=== PATIENT | male | born 1950 | race Caucasian/White ===

== ENCOUNTER → 2020-05-08 08:03 | Outpatient (BNVA) | payer BC, SELFPAY | PROVIDERS: Visit Provider Internal Medicine | DX: I50.9 Heart failure, unspecified (principal); I11.0 Hypertensive heart disease with heart failure; Z95.1 Presence of aortocoronary bypass graft; Z98.890 Other specified postprocedural states | CPT/HCPCS: 93005 ==

== ENCOUNTER 2021-01-31 10:30 | Inpatient (IN) | payer MEDICARE, OTHER, SELFPAY ==
--- NOTE | ~2021-01-31 | XR_ITS ---
EXAMINATION: XR CHEST CLINICAL INFORMATION: Shortness of breath, weakness COMPARISON: None TECHNIQUE: Portable upright AP view of the chest was obtained. FINDINGS: There are postsurgical changes with prosthetic cardiac valve, mediastinal clips, and sternotomy wires. The cardiopericardial silhouette is borderline enlarged. Smooth pleural thickening left lateral base may be related to postoperative change. Small effusion may have similar appearance. There is no lobar segmental airspace consolidation. Subtle patchy opacity right infrahilar region is present. There is no engorgement central vasculature or cephalization of flow to suggest vascular congestion.. XR/XR chest 1V IMPRESSION: 1. Patchy airspace opacities right infrahilar region. 2. Postoperative changes.
--- NOTE | ~2021-01-31 | XR_ITS ---
EXAMINATION: XR CHEST CLINICAL INFORMATION: Evaluate for pneumonia. COMPARISON: Portable chest dated 12/01/2020. TECHNIQUE: Frontal view of the chest was obtained. FINDINGS: There is a small left pleural effusion with probable layering in the major fissure. A definitive infiltrate is not seen. Previously seen right infrahilar markings have decreased. The heart and mediastinal structures are unremarkable. The patient status post valvular arthroplasty. Multilevel sternotomy wires are again seen without significant change. XR/XR chest 1V IMPRESSION: 1. Small left pleural effusion with probable layering in the major fissure appears minimally increased. No definitive infiltrate. 2. Interval decrease in right infrahilar markings suggesting improved atelectasis.
[2021-01-31 10:42] VITALS: BP 113/61; PULSE 80; RESP 22; TEMP 36.8; O2SAT 92; BMI 44.1
--- NOTE | 2021-01-31 11:20 | ED.GENADULT ---
HPI - General Adult General Chief complaint: Dyspnea Stated complaint: new onset a fib Time Seen by Provider: 01/31/21 11:19 Source: patient Mode of arrival: EMS Limitations: no limitations History of Present Illness HPI narrative: 70 yo male past medical history significant for CHF, hypertension,coronary artery bypass graft, mitral valve annuloplasty, presents to the emergency department with shortness of breath, weakness x3 days. He states that over the past 3 days he has been feeling increased shortness of breath, even when he is at rest. He also mentions he has been feeling weak, and with little energy. He has noticed increased swelling to bilateral lower extremities. And he reports that over the past 4 weeks he has gained approximately 20 lb. He is a daily smoker, and has been smoking for over 50 years. He has a chronic cough but over the last 4 weeks he has been bringing up more phlegm in the last few dyas. He denies previous history of atrial fibrillation. Denies chest pain, fevers, chills, nausea, vomiting, abdominal pain. EMS found the patient with SpO2 low 90s and he was placed on nasal cannula and brought to the ER for further evaluation. complaint: SOB Onset (ago): day(s) Location: chest Radiation: non-radiation Severity: moderate Pain Consistency: constant Relieving factors: rest Exacerbating factors: movement Associated symptoms: malaise, shortness of breath and weakness Treatments prior to arrival: other (oxygen) Related Data Home Medications Medication Instructions Recorded Confirmed amlodipine 10 mg tablet 10 mg PO DAILY 05/08/20 01/31/21 aspirin 81 mg tablet,delayed 81 mg PO DAILY 05/08/20 01/31/21 release (Adult Low Dose Aspirin) carvedilol 25 mg tablet 25 mg PO BID 05/08/20 01/31/21 furosemide 40 mg tablet 40 mg PO DAILY 05/08/20 01/31/21 lisinopril 20 mg tablet 20 mg PO DAILY 05/08/20 01/31/21 potassium chloride 10 mEq 10 meq PO BID 05/08/20 01/31/21 capsule,extended release pravastatin 80 mg tablet 80 mg PO DAILY 05/08/20 01/31/21 Allergies Allergy/AdvReac Type Severity Reaction Status Date / Time No Known Allergies Allergy Verified 01/31/21 10:42 [No Known Allergies*] Review of Systems Review of Systems: Constitutional: No Fever, No Chills ENT/Mouth: No sore throat, No Rhinorrhea, No Swallowing Difficulty Eyes: No Eye Pain, No Swelling, No Redness Cardiovascular: No Chest Pain, + SOB, No Orthopnea, No Edema, +Palpitaitons Respiratory: + Cough, + Sputum, No Wheezing, + dyspnea Gastrointestinal: No Nausea, No Vomiting, No Diarrhea, No abdominal Pain, No Hematochezia, No Melena Genitourinary: No Dysuria, No Urinary Frequency, No Hematuria Musculoskeletal: No joint pain, No Myalgias Skin: No Skin Lesions, No rash Neuro: No Weakness, No Numbness, No Dizziness, No Headache PMFSH Past Medical History Medical History (Updated 01/31/21 @ 15:11 by FRANSISCA Segura) Congestive heart failure, unspecified Essential hypertension Surgical History (Updated 05/08/20 @ 09:08 by Marvin Molina MD) H/O mitral valve repair Status post coronary artery bypass graft Status post mitral valve annuloplasty Family History Family History (Updated 05/08/20 @ 08:47 by ADAN Pierre) Father No problems noted. Mother No problems noted. Social History Social History (Updated 05/08/20 @ 08:46 by ADAN Pierre) Advance Directives: No Physical Exam Vital Signs: Vital Signs: Last Vital Signs Temp 98.3 F 01/31/21 10:42 Pulse 88 01/31/21 14:37 Resp 18 01/31/21 14:00 BP 147/64 H 01/31/21 14:00 Pulse Ox 92 01/31/21 14:00 Oxygen Flow Rate 2 01/31/21 10:42 Body Mass Index 44.1 Appearance: Alert. Oriented X3. No acute distress. Eyes: Pupils equal, round and reactive to light. ENT: Pharynx normal. Neck: Normal inspection. Neck supple. CVS: Normal heart rate and rhythm. Pulses normal. ?Murmur systolic best at right sternal border Respiratory: No respiratory distress. + wheezing noted over all lung gunter + decreased breath sounds to the left lower lobe. Abdomen: Soft and nontender. +BS x4 Skin: Skin warm and dry. Normal skin color. Normal skin turgor. No rashes. Extremities: 3+ pitting edema to b/l LE Neuro: Oriented X 3. No motor deficit. No sensory deficit. Course Course Course Narrative: 1125 62-year-old m PMHx significant for CHF, HTN, mitral valve repair non ASA presents to the ED with complaints of SOB and weakness for about 2 week progressively worsening. EMS states that he was saturating in the low 90s, so they placed him on 2 L of oxygen. He is currently saturating 92% on 2 L. He is a current daily smoker. Upon further questioning he also notes he has gained about 20 lb within the past month or so. Wheezing appreciated to all lung gunter upon physical examination, there are decreased breath sounds to left lower lobe. 3+ pitting edema is noted to bilateral lower extremities. Concern for acute CHF exacerbation. Will give a dose of IV lasix now. Plan is to obtain an EKG, chest x-ray, BMP, BNP, liver, magnesium, CBC, troponin, UA, COVID. Patient reports no fevers at home, he is currently afebrile, he reports some cough with sputum production, acute on chronic. Will get CXR to assess for PNA vs CHF Reevaluation(s) Reevaluation #1: X-ray shows patchy airspace opacities in the right infrahilar region. Labs show an elevated potassium at 5.4, carbon dioxide 33, BNP only 143, troponin 7.6, he is COVID negative. EKG is new onset rate controlled AFib. TT Dr. Molina and felt him in on this patient's case, he recommended ordering an echo completed on this patient. Reevaluation #2: Patient is saturating 90% on 2 L nasal cannula, he is feeling slightly better. He is diuresing well with IV Lasix. Given his wheeze, longstanding smoking, and productive cough, will plan to treat empirically for possible COPD exacerbation as well, with IV azithromycin, IV Rocephin, IV Solu-Medrol and a DuoNeb. Will reassess. Reevaluation #3: After DuoNeb treatment patient's heart rate remained well controlled in the 80s 90s. He feels no different after breathing treatment. Respiratory did not know any change in his breath sounds. Plan for admission for further evaluation and treatment. Dr. Jarvis aware who will admit. Consultations Consultation #1: Cardiology - Dr. Molina Medical Decision Making Lab Data Result diagrams: 01/31/21 12:11 01/31/21 12:11 Labs: Lab Results 01/31/21 01/31/21 01/31/21 Range/Units 12:11 12:11 12:11 WBC 8.8 (4.8-10.8) X10*3/uL RBC 4.34 L (4.60-5.80) X10*6/uL Hgb 14.2 (14.0-18.0) g/dl Hct 44.7 (42-52) % MCV 103.0 H (80-98) fL MCH 32.7 (27.0-33.0) pg MCHC 31.8 (31.0-36.0) g/dl RDW 14.9 (11.0-16.0) % Plt Count 254 (160-400) X10*3/uL MPV 9.3 L (9.4-12.4) fL Immature Gran % (Auto) 0.3 (0.0-0.4) % Neut % (Auto) 65.1 (45-73) % Lymph % (Auto) 17.4 L (20-40) % [place] % (Auto) 11.7 H (2-11) % Eos % (Auto) 4.4 H (0-4) % Baso % (Auto) 1.1 (0-2) % Lymph # (Auto) 1.5 (1.2-4.9) X10*3/uL [place] # (Auto) 1.0 (0.1-1.2) X10*3/uL Eos # (Auto) 0.4 (0.0-0.4) X10*3/uL Baso # (Auto) 0.1 (0.0-0.2) X10*3/uL Abs Immat Gran (auto) 0.03 (0.00-0.03) X10*3/uL Absolute Neuts (auto) 5.7 (2.0-8.3) X10*3/uL Absolute Nucleated RBC 0.000 (0.0-0.012) X10*3/uL Nucleated RBC % (auto) 0.0 (0.0-0.2) /100WBC Sodium 144 (135-145) mmol/L Potassium 5.4 H (3.3-5.1) mmol/L Chloride 106 (96-108) mmol/L Carbon Dioxide 33 H (22-29) mmol/L Anion Gap 10 L (12-20) BUN 13 (9-16) mg/dL Creatinine 1.25 (0.5-1.4) mg/dL Estim Creat Clear Calc 74.9 Estimated GFR 57 Random Glucose 112 (60-115) mg/dL Calcium 10.0 (8.4-10.2) mg/dL Magnesium 2.1 (1.6-2.6) mg/dL Total Bilirubin 0.9 (0.0-1.0) mg/dL Direct Bilirubin 0.5 (0.0-0.5) mg/dL AST 18 (5-37) U/L ALT 16 (0-40) U/L Alkaline Phosphatase 43 (39-117) U/L Troponin I High Sens 7.6 (<3.5-35.0) ng/L B-Natriuretic Peptide (<100) pg/mL Total Protein 6.9 (6.5-8.0) g/dL Albumin 4.1 (3.5-5.0) g/dL Urine Color Urine Appearance Urine pH (5.0-8.0) Ur Specific [place] (1.005-1.025) Urine Protein (NEG-TRACE) MG/DL Urine Glucose (UA) (NEG) MG/DL Urine Ketones (NEG) MG/DL Urine Blood (NEG) Urine Nitrite (NEG) Ur Leukocyte Esterase (NEG) COVID-19 ([place]) (Negative) COVID-19 Clin Com 01/31/21 01/31/21 01/31/21 Range/Units 12:11 12:11 14:30 WBC (4.8-10.8) X10*3/uL RBC (4.60-5.80) X10*6/uL Hgb (14.0-18.0) g/dl Hct (42-52) % MCV (80-98) fL MCH (27.0-33.0) pg MCHC (31.0-36.0) g/dl RDW (11.0-16.0) % Plt Count (160-400) X10*3/uL MPV (9.4-12.4) fL Immature Gran % (Auto) (0.0-0.4) % Neut % (Auto) (45-73) % Lymph % (Auto) (20-40) % [place] % (Auto) (2-11) % Eos % (Auto) (0-4) % Baso % (Auto) (0-2) % Lymph # (Auto) (1.2-4.9) X10*3/uL [place] # (Auto) (0.1-1.2) X10*3/uL Eos # (Auto) (0.0-0.4) X10*3/uL Baso # (Auto) (0.0-0.2) X10*3/uL Abs Immat Gran (auto) (0.00-0.03) X10*3/uL Absolute Neuts (auto) (2.0-8.3) X10*3/uL Absolute Nucleated RBC (0.0-0.012) X10*3/uL Nucleated RBC % (auto) (0.0-0.2) /100WBC Sodium (135-145) mmol/L Potassium (3.3-5.1) mmol/L Chloride (96-108) mmol/L Carbon Dioxide (22-29) mmol/L Anion Gap (12-20) BUN (9-16) mg/dL Creatinine (0.5-1.4) mg/dL Estim Creat Clear Calc Estimated GFR Random Glucose (60-115) mg/dL Calcium (8.4-10.2) mg/dL Magnesium (1.6-2.6) mg/dL Total Bilirubin (0.0-1.0) mg/dL Direct Bilirubin (0.0-0.5) mg/dL AST (5-37) U/L ALT (0-40) U/L Alkaline Phosphatase (39-117) U/L Troponin I High Sens (<3.5-35.0) ng/L B-Natriuretic Peptide 143 H (<100) pg/mL Total Protein (6.5-8.0) g/dL Albumin (3.5-5.0) g/dL Urine Color STRAW Urine Appearance CLEAR Urine pH 5.5 (5.0-8.0) Ur Specific [place] <= 1.005 (1.005-1.025) Urine Protein NEG (NEG-TRACE) MG/DL Urine Glucose (UA) NEG (NEG) MG/DL Urine Ketones NEG (NEG) MG/DL Urine Blood NEG (NEG) Urine Nitrite NEG (NEG) Ur Leukocyte Esterase NEG (NEG) COVID-19 ([place]) Negative (Negative) COVID-19 Clin Com See Note ECG Data Attestation: I personally reviewed and interpreted this ECG as follows: Interpretation: atrial fibrillation, HR 83 bpm, incomplete RBBB, poor R wave progression, no ST segment elevations or depressions Critical Care Time Critical Care Time Critical Care Time: Yes Total Critical Care Time: 48 Attestation: I have personally provided critical care time exclusive of time spent on separately billable procedures. Time includes review of lab data, radiology results, discussion with consultants, and monitoring for potential decompensation. Intervention performed as documented. Discharge Plan Discharge Clinical Impression: Congestive heart failure, unspecified, Atrial fibrillation, COPD (chronic obstructive pulmonary disease) Patient Disposition: Admitted As Inpatient
--- NOTE | 2021-01-31 11:25 | ECG_ITS ---
Test Reason : / NEW ONSET AFIB Blood Pressure : / mmHG Vent. Rate : 083 BPM Atrial Rate : 000 BPM P-R Int : 000 ms QRS Dur : 108 ms QT Int : 408 ms P-R-T Axes : 000 -13 033 degrees QTc Int : 479 ms Atrial fibrillation Low voltage QRS Incomplete right bundle branch block Nonspecific T wave abnormality Abnormal ECG No previous ECGs available Referred By: Rosie Newberry Electronically Signed By:ARVIND SÁNCHEZ MD
[2021-01-31 12:15] LABS: MANUAL DIFF FLAG NO
[2021-01-31 12:19] LABS: Basophils Absolute Auto 0.1 X10*3/uL (0.0-0.2); Basophils Percent Auto 1.1 % (0-2); Eosinophils Absolute Auto 0.4 X10*3/uL (0.0-0.4); Eosinophils Percent Auto 4.4 % (0-4); Hematocrit 44.7 % (42-52); Hemoglobin 14.2 g/dl (14.0-18.0); Imm Gran Abs Auto 0.03 X10*3/uL (0.00-0.03); Imm Gran Pct Auto 0.3 % (0.0-0.4); Lymphocytes Absolute Auto 1.5 X10*3/uL (1.2-4.9); Lymphocytes Percent Auto 17.4 % (20-40); Mean Corpuscular HGB Conc 31.8 g/dl (31.0-36.0); Mean Corpuscular Hemoglobin 32.7 pg (27.0-33.0); Mean Platelet Volume 9.3 fL (9.4-12.4); Monocytes Percent Auto 11.7 % (2-11); Neutrophils Absolute Auto 5.7 X10*3/uL (2.0-8.3); Neutrophils Percent Auto 65.1 % (45-73); Platelet Count 254 X10*3/uL (160-400); Red Blood Count 4.34 X10*6/uL (4.60-5.80); Red Cell Distribution Width 14.9 % (11.0-16.0); White Blood Count 8.8 X10*3/uL (4.8-10.8)
[2021-01-31 12:33] LABS: Alanine Aminotransferase 16 U/L (0-40); Albumin Level 4.1 g/dL (3.5-5.0); Alkaline Phosphatase 43 U/L (39-117); Anion Gap 10 (12-20); Aspartate Amino Transferase 18 U/L (5-37); Bilirubin Direct 0.5 mg/dL (0.0-0.5); Bilirubin Total 0.9 mg/dL (0.0-1.0); Blood Urea Nitrogen 13 mg/dL (9-16); COVID-19 Test Negative (Negative); Carbon Dioxide 33 mmol/L (22-29); Chloride 106 mmol/L (96-108); Creatinine Clr Calc Pharmacy 74.9; Estimated Glomerular Filt Rate 57; Glucose Random 112 mg/dL (60-115); Magnesium 2.1 mg/dL (1.6-2.6); Potassium 5.4 mmol/L (3.3-5.1); Sodium 144 mmol/L (135-145); Total Protein 6.9 g/dL (6.5-8.0)
[2021-01-31 12:36] LABS: B Type Natriuretic Peptide 143 pg/mL (<100)
[2021-01-31 12:38] LABS: Troponin-I High Sensitivity 7.6 ng/L (<3.5-35.0)
--- NOTE | 2021-01-31 12:41 | PHA.MEDREC ---
Pharmacy Consult ? Medication Reconciliation Pharmacy has completed the medication reconciliation. There are no remarkable issues for provider's attention. Daria Peña, HarleyD
[2021-01-31] MEDS: Furosemide 40 MG/4 ML VIAL IVPUSH ×2 (13:00→18:27)
[2021-01-31 14:00] VITALS: BP 147/64; PULSE 78; RESP 18; O2SAT 92
[2021-01-31] MEDS: Albuterol/Iprat 2.5/0.5MG 3 ML AMPUL.NEB 1.5 ML INHALE (14:35)
[2021-01-31 14:37] VITALS: PULSE 88; O2SAT 93
[2021-01-31 14:51] LABS: Appearance Urine CLEAR; Color Urine STRAW; Glucose Urine UA NEG (NEG); Leukocyte Esterase Urine NEG (NEG); Nitrite Urine NEG (NEG); PH 5.5 (5.0-8.0); Specific Gravity - Urine <= 1.005 (1.005-1.025); Urine Blood NEG (NEG); Urine Ketones NEG (NEG); Urine Protein NEG (NEG-TRACE)
[2021-01-31] MEDS: methylPREDNISolone Sod Succ 40 MG/ML VIAL 80 MG IVPUSH (15:12)
--- NOTE | 2021-01-31 15:44 | P.HPHOSP_ITS ---
History of Present Illness Date of Service: 01/31/21 Attending physician on admission: Fei Garcia Chief Complaint: shortness of breath This is a 70-year-old male with history of CHF, hypertension, daily tobacco use who presents to the emergency department with shortness of breath. Patient reports 3-4 weeks of progressively worsening dyspnea on exertion. Today he became short of breath just walking short distance. This prompted him to come to the emergency department for evaluation. He has had some intermittent cough productive of clear phlegm. He denies any associated fever or chills. He does report 20 lb weight gain over the past 3-4 weeks. He denies any associated cough, palpitations, dizziness. He has been taking his home dose of Lasix and has not missed any doses. He reports following a low-sodium diet in general but been has been eating deli meat recently. In the emergency department chest x- ray showed patchy opacities. His BNP was 143, troponin 7.6 and potassium 5.4. He was treated with IV Solu-Medrol, ceftriaxone and azithromycin and IV Lasix. He has had over 1L of urine ouput since receiving lasix and reports a small improvement in his breathing. The decision was made to admit him for further management with a working diagnosis of acute chf exacerbation. Review of Systems Review of Systems: Yes all other systems are reviewed and are negative Constitutional: Constitutional: Denies chills and Denies fever(s) Cardiovascular: Cardiovascular: Denies chest pain Respiratory: Respiratory: Denies cough Gastrointestinal: Gastrointestinal: Denies abdominal pain [facility] Medical History (Updated 01/31/21 @ 16:07 by FRANSISCA Garcia) Congestive heart failure, unspecified Essential hypertension Tobacco dependence Family History Father No problems noted. Mother No problems noted. Pertinent family history: Mother - heart disease Surgical History H/O mitral valve repair Status post coronary artery bypass graft Status post mitral valve annuloplasty Social History (Updated 01/31/21 @ 16:08 by FRANSISCA Garcia) Alcohol intake: current Alcohol intake frequency: a few times a month Patient Tobacco Use Status: Current everyday Tobacco user Cigarette Packs Per Day: 1 Substance Use Type: Marijuana Advance Directives: No Meds Allergies Allergy/AdvReac Type Severity Reaction Status Date / Time No Known Allergies Allergy Verified 01/31/21 10:42 [No Known Allergies*] Active Medications: Current Medications Acetaminophen (Acetaminophen 325 Mg Tablet) 650 mg PO Q6H PRN PRN Reason: Pain, Mild (Pain Scale 1-3) Amlodipine Besylate (Amlodipine Besylate 10 Mg Tablet) 10 mg PO DAILY [facility]; Protocol Aspirin (Aspirin Enteric Coated 81 Mg Tablet.Dr) 81 mg PO DAILY [facility] Carvedilol (Carvedilol 25 Mg Tablet) 25 mg PO BID [facility]; Protocol Docusate Sodium (Docusate Sodium 100 Mg Capsule) 100 mg PO DAILY PRN PRN Reason: Constipation Furosemide (Furosemide 40 Mg/4 Ml Vial) 40 mg IVPUSH BID@0900,1800 [facility]; Protocol Azithromycin 500 mg/ Sodium (Chloride) 250 mls @ 125 mls/hr IV ONCE ONE Stop: 01/31/21 16:01 Nicotine (Nicotine 14 Mg Patch.Td24) 14 mg TRANSDERMA DAILY [facility] Ondansetron HCl (Ondansetron Hcl 4 Mg/2 Ml Vial) 4 mg IVPUSH Q8H PRN PRN Reason: Nausea and Vomiting Pharmacy Consult (Consult Rx Perform Med Rec) 1 each MISCELLANE ONCE PRN PRN Reason: Consult order Pravastatin Sodium (Pravastatin Sodium 80 Mg Tablet) 80 mg PO BEDTIME [facility] Sodium Chloride (0.9 % Sodium Chloride Flush 3 Ml Syringe) 3 ml IVFLUSH QSHIFT [facility] Home Medications Medication Instructions Recorded Confirmed Last Taken Type amlodipine 10 mg tablet 10 mg PO DAILY 05/08/20 01/31/21 01/31/21 History aspirin 81 mg tablet,delayed 81 mg PO DAILY 05/08/20 01/31/21 01/31/21 History release (Adult Low Dose Aspirin) carvedilol 25 mg tablet 25 mg PO BID 05/08/20 01/31/21 01/31/21 History furosemide 40 mg tablet 40 mg PO DAILY 05/08/20 01/31/21 01/31/21 History lisinopril 20 mg tablet 20 mg PO DAILY 05/08/20 01/31/21 01/31/21 History potassium chloride 10 mEq 10 meq PO BID 05/08/20 01/31/21 01/31/21 History capsule,extended release pravastatin 80 mg tablet 80 mg PO DAILY 05/08/20 01/31/21 01/31/21 History Physical Exam Vital Signs and Narrative: Vital Signs: Last Vital Signs Temp 98.3 F 01/31/21 10:42 Pulse 88 01/31/21 14:37 Resp 18 01/31/21 14:00 BP 147/64 H 01/31/21 14:00 Pulse Ox 92 01/31/21 14:00 Oxygen Flow Rate 2 01/31/21 10:42 Body Mass Index 44.1 Const: General: alert and awake Nutritional Appearance: obese Orientat ion/consciousness: patient oriented x3 HENMT: Head: Yes normocephalic and Yes atraumatic Eyes: Sclerae: sclerae normal Pupils: Equal, round and reactive pupils present Chest: Chest palpation & inspection: normal inspection of the chest Resp: Other: mild bibasilar crackles r>L; no wheezing; diminished breath sounds b/l Cardio: Rate: regular rate Rhythm: regular rhythm GI: Inspection: No distended Palpation (GI): Soft to palpation and nontender Skin: Other: dry skin around left mu-ism region (reportedly present on and off for up to a year) left ear trangus with ulcerated lesion (present for close to a year) Neuro: General: patient oriented x3 Cranial nerves: Yes CN's II-XII intact bilaterally, Yes Equal, round and reactive pupils present and Yes Bilaterally intact EOM present Extrem: Other: b/l lower extremity pitting edema Results Labs CBC and Chem 7: 01/31/21 12:11 01/31/21 12:11 Labs: Laboratory Results - last 24 hr 01/31/21 01/31/21 01/31/21 12:11 12:11 12:11 MCV 103.0 H MCH 32.7 MCHC 31.8 RDW 14.9 Plt Count 254 MPV 9.3 L Immature Gran % (Auto) 0.3 Neut % (Auto) 65.1 Lymph % (Auto) 17.4 L [place] % (Auto) 11.7 H Eos % (Auto) 4.4 H Baso % (Auto) 1.1 Lymph # (Auto) 1.5 [place] # (Auto) 1.0 Eos # (Auto) 0.4 Baso # (Auto) 0.1 Abs Immat Gran (auto) 0.03 Absolute Neuts (auto) 5.7 Absolute Nucleated RBC 0.000 Nucleated RBC % (auto) 0.0 Anion Gap 10 L Estim Creat Clear Calc 74.9 Estimated GFR 57 Random Glucose 112 Calcium 10.0 Magnesium 2.1 Total Bilirubin 0.9 Direct Bilirubin 0.5 AST 18 ALT 16 Alkaline Phosphatase 43 Troponin I High Sens 7.6 B-Natriuretic Peptide Total Protein 6.9 Albumin 4.1 Urine Color Urine Appearance Urine pH Ur Specific [place] Urine Protein Urine Glucose (UA) Urine Ketones Urine Blood Urine Nitrite Ur Leukocyte Esterase COVID-19 ([place]) COVID-19 Clin Com 01/31/21 01/31/21 01/31/21 12:11 12:11 14:30 MCV MCH MCHC RDW Plt Count MPV Immature Gran % (Auto) Neut % (Auto) Lymph % (Auto) [place] % (Auto) Eos % (Auto) Baso % (Auto) Lymph # (Auto) [place] # (Auto) Eos # (Auto) Baso # (Auto) Abs Immat Gran (auto) Absolute Neuts (auto) Absolute Nucleated RBC Nucleated RBC % (auto) Anion Gap Estim Creat Clear Calc Estimated GFR Random Glucose Calcium Magnesium Total Bilirubin Direct Bilirubin AST ALT Alkaline Phosphatase Troponin I High Sens B-Natriuretic Peptide 143 H Total Protein Albumin Urine Color STRAW Urine Appearance CLEAR Urine pH 5.5 Ur Specific [place] <= 1.005 Urine Protein NEG Urine Glucose (UA) NEG Urine Ketones NEG Urine Blood NEG Urine Nitrite NEG Ur Leukocyte Esterase NEG COVID-19 ([place]) Negative COVID-19 Clin Com See Note Imaging Radiologist's Impressions: Impressions Chest X-Ray 01/31/21 11:25 IMPRESSION: 1. Patchy airspace opacities right infrahilar region. 2. Postoperative changes. Assessment and Plan (1) Congestive heart failure, unspecified: Qualifiers: Heart failure type: unspecified Heart failure chronicity: unspecified Qualified Code(s): I50.9 - Heart failure, unspecified Status: Acute (2) Atrial fibrillation: Qualifiers: Atrial fibrillation type: unspecified Qualified Code(s): I48.91 - Unspecified atrial fibrillation Status: Acute (3) Essential hypertension: Status: Acute This is a 70-year-old male history CHF, CAD to the emergency department 3- 4 weeks increasing dyspnea on exertion Dyspnea Symptoms most consistent with acute on chronic heart failure No echocardiogram in the system -IV Lasix -echocardiogram -cardiology consult -Is&Os, daily weight -low sodium diet New onset atrial fibrillation [id number] score 3 -check thyroid function -HR controlled, continue coreg -will start AC with Eliquis hyperkalemia K 5.4 hold potassium supplementation -will hold lisinopril for now -repeat BMP in am CAD no chest pain -continue statin, asa, Coreg HTN -continue Norvasc, Coreg Morbid obesity BMI 44.1 Body habitus likely worsening respiratory condition tobacco dependence smoking cessation advised dvt ppx - eliquis code status - DNR/DNI attending: dr. garcia Quality Stroke Does the patient have a stroke diagnosis?: No VTE Prior VTE?: No VTE Risk Level:: Medical - moderate - high VTE Device Contraindication: Treatment Not Indicated VTE Drug Contraindication: N/A - Med Ordered
[2021-01-31 16:12] LABS: Thyroid Stimulating Hormone 0.59 uIU/mL (0.32-4.0)
[2021-01-31] MEDS: cefTRIAXone sodium 1 GM in 0.9 % Sodium Chloride 50 ML IV (16:17)
[2021-01-31 16:54] LABS: Lactic Acid 0.9 mmol/L (0.5-2.0)
[2021-01-31] MEDS: Azithromycin 500 MG in 0.9 % Sodium Chloride 250 ML 125 MG IV (16:57)
--- NOTE | 2021-01-31 18:22 | PC.NURSE ---
CALLED TO GIVE REPORT RN WILL RETURN CALL
[2021-01-31 19:44] VITALS: BP 120/66; PULSE 98; RESP 19; TEMP 37; O2SAT 95
[2021-01-31] MEDS: carvediloL 25 MG TABLET PO (20:26)
[2021-01-31] MEDS: Apixaban 5 MG TABLET PO (20:26)
[2021-01-31] MEDS: 0.9 % Sodium Chloride Flush 3 ML SYRINGE IVFLUSH (20:27)
[2021-01-31 23:27] VITALS: BP 126/80; PULSE 96; RESP 18; TEMP 36.3; O2SAT 95
[2021-01-31 23:44] VITALS: BMI 44.1
[2021-02-01] VITALS (7 sets, daily range): BP systolic 111–121; BP diastolic 59–72; PULSE 74–99; RESP 18–20; TEMP 36–36.6; O2SAT 91–95
[2021-02-01 06:17] LABS: Hemoglobin 13.5 g/dl (14.0-18.0); Mean Corpuscular HGB Conc 32.1 g/dl (31.0-36.0); Mean Corpuscular Hemoglobin 32.1 pg (27.0-33.0); Mean Platelet Volume 9.8 fL (9.4-12.4); Platelet Count 237 X10*3/uL (160-400); Red Cell Distribution Width 14.6 % (11.0-16.0); White Blood Count 7.2 X10*3/uL (4.8-10.8)
[2021-02-01 06:32] LABS: Anion Gap 13 (12-20); Blood Urea Nitrogen 16 mg/dL (9-16); Calcium 9.2 mg/dL (8.4-10.2); Carbon Dioxide 29 mmol/L (22-29); Chloride 104 mmol/L (96-108); Creatinine Clr Calc Pharmacy 82.8; Estimated Glomerular Filt Rate > 60; Glucose Random 160 mg/dL (60-115); Potassium 4.4 mmol/L (3.3-5.1); Sodium 142 mmol/L (135-145)
--- NOTE | 2021-02-01 10:16 | MHC.CM.PN ---
met with pt who lives alone pt had no services prior to admisison he does not feel he will need mservceis when dcd pt wants to change hism pcp ,list given dc plan home no serviceis
[2021-02-01] MEDS: Aspirin Enteric Coated 81 MG TABLET.DR PO (10:35)
[2021-02-01] MEDS: Apixaban 5 MG TABLET PO ×2 (10:36→20:58)
[2021-02-01] MEDS: 0.9 % Sodium Chloride Flush 3 ML SYRINGE IVFLUSH ×3 (10:36→21:00)
[2021-02-01] MEDS: carvediloL 25 MG TABLET PO ×2 (10:36→20:57)
[2021-02-01] MEDS: amLODIPine Besylate 10 MG TABLET PO (10:36)
[2021-02-01] MEDS: Furosemide 40 MG/4 ML VIAL IVPUSH ×2 (10:37→17:47)
--- NOTE | 2021-02-01 10:48 | PM.CNCAR ---
History of Present Illness History of Present Illness Date of Service: 02/01/21 Chief complaint: Shortness of breath Narrative: This is a cardiology consultation regarding shortness of breath. We had seen him in the past almost a year ago or so. He has a history of coronary artery disease, bypass surgery and mitral valve repair in 2009. No regular follow-up. We had recommended an echocardiogram when we saw him April this year but he stated that he could not afford from financial standpoint and hence nothing was performed. We had not seen him back in the office either. Now he states that for the last few weeks, he has not been feeling good. He has been progressively getting short of breath. He has also been noticing leg swelling. No anginal-type symptoms. He has been seen in the ER and admitted for further evaluation in this regard. Review of Systems Review of Systems: Yes all other systems are reviewed and are negative Cardiovascular: Cardiovascular: Reports as per HPI, Reports no additional cardiovascular complaints, Denies acrocyanosis, Denies cool extremities, Denies painful fingertips, Denies chest pain, Denies chest pain at rest, Denies diaphoresis, Denies syncope, Denies irregular heart rhythm, Denies claudication, Reports leg edema, Denies lightheadedness, Denies palpitations and Reports dyspnea Respiratory: Respiratory: Reports dyspnea Neurologic: Denies syncope Endocrine: Endocrine: Denies palpitations [facility] Past Medical History Medical History (Updated 02/01/21 @ 10:54 by Marvin Molina MD) Congestive heart failure, unspecified Essential hypertension Tobacco dependence Family History Family History Father No problems noted. Mother No problems noted. Surgical History Surgical History H/O mitral valve repair Status post coronary artery bypass graft Status post mitral valve annuloplasty Social History Social History (Updated 01/31/21 @ 16:08 by FRANSISCA Garcia) Household Members: None Housing: House Do you presently have visiting nurse or other home services: No Alcohol intake: current Alcohol intake frequency: a few times a month Patient Tobacco Use Status: Current everyday Tobacco user Tobacco use type: Cigarette Cigarette Packs Per Day: 1 Smoked in Last 30 Days: Yes e-Cigarette/Vaping Use: Never Used Patient Interested in Nicotine Replacement: No Patient Given Instructions on How to Stop Smoking: No (refused) Second Hand Smoke Exposure: No Use of substances other than those prescribed or required for medical reasons: No Substance Use Type: Marijuana Currently Displaying Signs/Symptoms of Drug Intoxication Withdrawal: No Have you been hit, kicked, punched, or otherwise hurt by someone within the past year? If so, by whom?: No Do you feel safe in your current relationship?: No Current Relationship Is there a partner from a previous relationship who is making you feel unsafe now?: No Spiritual Healthcare Practices: n/a Scientology Healthcare Practices: n/a Cultural Healthcare Practices: n/a Advance Directives: No Do you have thoughts of harming others: None Do you have a plan to hurt others: No Plan Recently lost weight without trying: No Eating poorly because of decreased appetite: No Nutrition Risks: No Nutritional Risk service: No Meds Allergies Allergy/AdvReac Type Severity Reaction Status Date / Time No Known Allergies Allergy Verified 01/31/21 10:42 [No Known Allergies*] Active Medications: Current Medications Acetaminophen (Acetaminophen 325 Mg Tablet) 650 mg PO Q6H PRN PRN Reason: Pain, Mild (Pain Scale 1-3) Amlodipine Besylate (Amlodipine Besylate 10 Mg Tablet) 10 mg PO DAILY [facility]; Protocol Last Admin: 02/01/21 10:36 Dose: 10 mg Documented by: Apixaban (Apixaban 5 Mg Tablet) 5 mg PO BID [facility] Last Admin: 02/01/21 10:36 Dose: 5 mg Documented by: Aspirin (Aspirin Enteric Coated 81 Mg Tablet.) 81 mg PO DAILY [facility] Last Admin: 02/01/21 10:35 Dose: 81 mg Documented by: Carvedilol (Carvedilol 25 Mg Tablet) 25 mg PO BID [facility]; Protocol Last Admin: 02/01/21 10:36 Dose: 25 mg Documented by: Docusate Sodium (Docusate Sodium 100 Mg Capsule) 100 mg PO DAILY PRN PRN Reason: Constipation Furosemide (Furosemide 40 Mg/4 Ml Vial) 40 mg IVPUSH BID@0900,1800 [facility]; Protocol Last Admin: 02/01/21 10:37 Dose: 40 mg Documented by: Nicotine (Nicotine 14 Mg Patch.Td24) 14 mg TRANSDERMA DAILY [facility] Last Admin: 02/01/21 10:40 Dose: Not Given Documented by: Ondansetron HCl (Ondansetron Hcl 4 Mg/2 Ml Vial) 4 mg IVPUSH Q8H PRN PRN Reason: Nausea and Vomiting Pharmacy Consult (Consult Rx Perform Med Rec) 1 each MISCELLANE ONCE PRN PRN Reason: Consult order Pravastatin Sodium (Pravastatin Sodium 80 Mg Tablet) 80 mg PO BEDTIME [facility] Sodium Chloride (0.9 % Sodium Chloride Flush 3 Ml Syringe) 3 ml IVFLUSH QSHIFT [facility] Last Admin: 02/01/21 10:36 Dose: 3 ml Documented by: Home Medications Medication Instructions Recorded Confirmed Last Taken Type amlodipine 10 mg tablet 10 mg PO DAILY 05/08/20 01/31/21 01/31/21 History aspirin 81 mg tablet,delayed 81 mg PO DAILY 05/08/20 01/31/21 01/31/21 History release (Adult Low Dose Aspirin) carvedilol 25 mg tablet 25 mg PO BID 05/08/20 01/31/21 01/31/21 History furosemide 40 mg tablet 40 mg PO DAILY 05/08/20 01/31/21 01/31/21 History lisinopril 20 mg tablet 20 mg PO DAILY 05/08/20 01/31/21 01/31/21 History potassium chloride 10 mEq 10 meq PO BID 05/08/20 01/31/21 01/31/21 History capsule,extended release pravastatin 80 mg tablet 80 mg PO DAILY 05/08/20 01/31/21 01/31/21 History Physical Exam Vital Signs: Vital Signs: Last Vital Signs Temp 97.0 F 02/01/21 08:00 Pulse 99 02/01/21 10:36 Resp 18 02/01/21 08:00 BP 121/71 02/01/21 10:36 Pulse Ox 95 02/01/21 08:00 Oxygen Flow Rate 2 01/31/21 10:42 Body Mass Index 44.1 Const: General: cooperative and no acute distress HENMT: Other: Unremarkable Neck: Neck: Yes normal visual inspection Chest: Chest palpation & inspection: normal inspection of the chest Resp: Auscultation: wheezes Cardio: Jugular venous distension: no JVD Palpation: normal PMI Heart sounds: S1 normal heart sound present, S2 normal heart sound present, no gallops, Murmur heart sound present (2/6 [place] aortic area) and no rubs GI: Palpation (GI): Soft to palpation Back/Spine/Pelvis: Other: unremarkable Skin: General skin exam: no rashes or lesions noted Neuro: Cranial nerves: Yes Other cranial nerve findings present Extrem: General: Yes pedal edema (3+ edema) Psych: Mental Status: other Results Labs and Meds Result diagrams: 02/01/21 05:39 02/01/21 05:39 Lab results: Laboratory Results - last 24 hr 01/31/21 01/31/21 01/31/21 12:11 12:11 12:11 WBC 8.8 RBC 4.34 L Hgb 14.2 Hct 44.7 MCV 103.0 H MCH 32.7 MCHC 31.8 RDW 14.9 Plt Count 254 MPV 9.3 L Immature Gran % (Auto) 0.3 Neut % (Auto) 65.1 Lymph % (Auto) 17.4 L [place] % (Auto) 11.7 H Eos % (Auto) 4.4 H Baso % (Auto) 1.1 Lymph # (Auto) 1.5 [place] # (Auto) 1.0 Eos # (Auto) 0.4 Baso # (Auto) 0.1 Abs Immat Gran (auto) 0.03 Absolute Neuts (auto) 5.7 Absolute Nucleated RBC 0.000 Nucleated RBC % (auto) 0.0 Sodium 144 Potassium 5.4 H Chloride 106 Carbon Dioxide 33 H Anion Gap 10 L BUN 13 Creatinine 1.25 Estim Creat Clear Calc 74.9 Estimated GFR 57 Random Glucose 112 Lactic Acid Calcium 10.0 Magnesium 2.1 Total Bilirubin 0.9 Direct Bilirubin 0.5 AST 18 ALT 16 Alkaline Phosphatase 43 Troponin I High Sens 7.6 B-Natriuretic Peptide Total Protein 6.9 Albumin 4.1 TSH 0.59 Urine Color Urine Appearance Urine pH Ur Specific [place] Urine Protein Urine Glucose (UA) Urine Ketones Urine Blood Urine Nitrite Ur Leukocyte Esterase COVID-19 ([facility]) COVID-19 Clin Com 01/31/21 01/31/21 01/31/21 12:11 12:11 14:30 WBC RBC Hgb Hct MCV MCH MCHC RDW Plt Count MPV Immature Gran % (Auto) Neut % (Auto) Lymph % (Auto) [place] % (Auto) Eos % (Auto) Baso % (Auto) Lymph # (Auto) [place] # (Auto) Eos # (Auto) Baso # (Auto) Abs Immat Gran (auto) Absolute Neuts (auto) Absolute Nucleated RBC Nucleated RBC % (auto) Sodium Potassium Chloride Carbon Dioxide Anion Gap BUN Creatinine Estim Creat Clear Calc Estimated GFR Random Glucose Lactic Acid Calcium Magnesium Total Bilirubin Direct Bilirubin AST ALT Alkaline Phosphatase Troponin I High Sens B-Natriuretic Peptide 143 H Total Protein Albumin TSH Urine Color STRAW Urine Appearance CLEAR Urine pH 5.5 Ur Specific [place] <= 1.005 Urine Protein NEG Urine Glucose (UA) NEG Urine Ketones NEG Urine Blood NEG Urine Nitrite NEG Ur Leukocyte Esterase NEG COVID-19 ([place]) Negative COVID-19 Clin Com See Note 01/31/21 02/01/21 02/01/21 16:33 05:39 05:39 WBC 7.2 RBC 4.20 L Hgb 13.5 L Hct 42.0 MCV 100.0 H MCH 32.1 MCHC 32.1 RDW 14.6 Plt Count 237 MPV 9.8 Immature Gran % (Auto) Neut % (Auto) Lymph % (Auto) [place] % (Auto) Eos % (Auto) Baso % (Auto) Lymph # (Auto) [place] # (Auto) Eos # (Auto) Baso # (Auto) Abs Immat Gran (auto) Absolute Neuts (auto) Absolute Nucleated RBC 0.000 Nucleated RBC % (auto) 0.0 Sodium 142 Potassium 4.4 Chloride 104 Carbon Dioxide 29 Anion Gap 13 BUN 16 Creatinine 1.13 Estim Creat Clear Calc 82.8 Estimated GFR > 60 Random Glucose 160 H D Lactic Acid 0.9 Calcium 9.2 D Magnesium Total Bilirubin Direct Bilirubin AST ALT Alkaline Phosphatase Troponin I High Sens B-Natriuretic Peptide Total Protein Albumin TSH Urine Color Urine Appearance Urine pH Ur Specific [place] Urine Protein Urine Glucose (UA) Urine Ketones Urine Blood Urine Nitrite Ur Leukocyte Esterase COVID-19 ([facility]) COVID-19 Clin Com ECG Interpretation: EKG shows atrial fibrillation, 83/Min; incomplete right bundle-branch block. Imaging Radiologist's impression: Impressions Chest X-Ray 01/31/21 11:25 IMPRESSION: 1. Patchy airspace opacities right infrahilar region. 2. Postoperative changes. Assessment and Plan (1) Acute on chronic systolic (congestive) heart failure: Status: Acute (2) Status post mitral valve annuloplasty: Status: Acute (3) Status post coronary artery bypass graft: Status: Acute (4) New onset atrial fibrillation: Status: Acute Based on my last office note, his ejection fraction of 30-35% from several years ago but not been rechecked because of financial issues. We can repeat his echocardiogram while is in the hospital. This could be progression of LV systolic dysfunction leading to heart failure. He is also in atrial fibrillation which seems to be new finding. Overall, plan will be IV diuresis. Anticoagulation. He seems to be under reasonable cardiac medication regimen at home. Procedures Date of Service Date of Service: 02/01/21
--- NOTE | 2021-02-01 11:32 | HO.PM.IMPN ---
Subjective Subjective Date of Service: 02/01/21 Interval History: Seen and examined this morning Follow-up for shortness of breath, CHF Reports improvement in breathing, but still requiring 4L of oxygen Review of Systems Review of Systems: Yes all other systems are reviewed and are negative Constitutional Constitutional: Denies chills and Denies fever(s) Cardiovascular Cardiovascular: Denies chest pain Gastrointestinal Gastrointestinal: Denies abdominal pain Physical Exam Vital Signs: Vital Signs: Last Vital Signs Temp 97.8 F 02/01/21 11:20 Pulse 90 02/01/21 11:20 Resp 20 02/01/21 11:20 BP 111/66 02/01/21 11:20 Pulse Ox 95 02/01/21 11:20 Oxygen Flow Rate 2 01/31/21 10:42 Body Mass Index 44.1 Const: General: alert and awake Nutritional Appearance: obese Orientation/consciousness: patient oriented x3 HENMT: Head: Yes normocephalic and Yes atraumatic Eyes: Sclerae: sclerae normal Pupils: Equal, round and reactive pupils present Chest: Chest palpation & inspection: normal inspection of the chest Resp: Auscultation: clear to auscultation bilaterally and diminished lung sounds Cardio: Rate: regular rate Rhythm: regular rhythm GI: Inspection: No distended Palpation (GI): Soft to palpation and nontender Skin: Other: dry skin around left holiness region (reportedly present on and off for up to a year) left ear trangus with ulcerated lesion (present for close to a year) Neuro: General: patient oriented x3 Cranial nerves: Yes CN's II-XII intact bilaterally, Yes Equal, round and reactive pupils present and Yes Bilaterally intact EOM present Extrem: Other: b/l lower extremity 3+ pitting edema Objective Data Active Medications Acetaminophen (Acetaminophen 325 Mg Tablet) 650 mg PO Q6H PRN PRN Reason: Pain, Mild (Pain Scale 1-3) Amlodipine Besylate (Amlodipine Besylate 10 Mg Tablet) 10 mg PO DAILY [facility]; Protocol Last Admin: 02/01/21 10:36 Dose: 10 mg Documented by: LAM Apixaban (Apixaban 5 Mg Tablet) 5 mg PO BID [facility] Last Admin: 02/01/21 10:36 Dose: 5 mg Documented by: LAM Aspirin (Aspirin Enteric Coated 81 Mg Tablet.) 81 mg PO DAILY [facility] Last Admin: 02/01/21 10:35 Dose: 81 mg Documented by: LAM Carvedilol (Carvedilol 25 Mg Tablet) 25 mg PO BID [facility]; Protocol Last Admin: 02/01/21 10:36 Dose: 25 mg Documented by: LAM Docusate Sodium (Docusate Sodium 100 Mg Capsule) 100 mg PO DAILY PRN PRN Reason: Constipation Furosemide (Furosemide 40 Mg/4 Ml Vial) 40 mg IVPUSH BID@0900,1800 [facility]; Protocol Last Admin: 02/01/21 10:37 Dose: 40 mg Documented by: LAM Nicotine (Nicotine 14 Mg Patch.Td24) 14 mg TRANSDERMA DAILY [facility] Last Admin: 02/01/21 10:40 Dose: Not Given Documented by: LAM Non-Admin Reason: Patient Refused Ondansetron HCl (Ondansetron Hcl 4 Mg/2 Ml Vial) 4 mg IVPUSH Q8H PRN PRN Reason: Nausea and Vomiting Pharmacy Consult (Consult Rx Perform Med Rec) 1 each MISCELLANE ONCE PRN PRN Reason: Consult order Pravastatin Sodium (Pravastatin Sodium 80 Mg Tablet) 80 mg PO BEDTIME [facility] Sodium Chloride (0.9 % Sodium Chloride Flush 3 Ml Syringe) 3 ml IVFLUSH QSHIFT [facility] Last Admin: 02/01/21 10:36 Dose: 3 ml Documented by: LAM Labs CBC & Chem 7: 02/01/21 05:39 02/01/21 05:39 Labs: Laboratory Results - last 24 hr 01/31/21 01/31/21 01/31/21 12:11 12:11 12:11 MCV 103.0 H MCH 32.7 MCHC 31.8 RDW 14.9 Plt Count 254 MPV 9.3 L Immature Gran % (Auto) 0.3 Neut % (Auto) 65.1 Lymph % (Auto) 17.4 L [place] % (Auto) 11.7 H Eos % (Auto) 4.4 H Baso % (Auto) 1.1 Lymph # (Auto) 1.5 [place] # (Auto) 1.0 Eos # (Auto) 0.4 Baso # (Auto) 0.1 Abs Immat Gran (auto) 0.03 Absolute Neuts (auto) 5.7 Absolute Nucleated RBC 0.000 Nucleated RBC % (auto) 0.0 Anion Gap 10 L Estim Creat Clear Calc 74.9 Estimated GFR 57 Random Glucose 112 Lactic Acid Calcium 10.0 Magnesium 2.1 Total Bilirubin 0.9 Direct Bilirubin 0.5 AST 18 ALT 16 Alkaline Phosphatase 43 Troponin I High Sens 7.6 B-Natriuretic Peptide Total Protein 6.9 Albumin 4.1 TSH 0.59 Urine Color Urine Appearance Urine pH Ur Specific [place] Urine Protein Urine Glucose (UA) Urine Ketones Urine Blood Urine Nitrite Ur Leukocyte Esterase COVID-19 ([facility]) COVID-19 Clin Com 01/31/21 01/31/21 01/31/21 12:11 12:11 14:30 MCV MCH MCHC RDW Plt Count MPV Immature Gran % (Auto) Neut % (Auto) Lymph % (Auto) [place] % (Auto) Eos % (Auto) Baso % (Auto) Lymph # (Auto) [place] # (Auto) Eos # (Auto) Baso # (Auto) Abs Immat Gran (auto) Absolute Neuts (auto) Absolute Nucleated RBC Nucleated RBC % (auto) Anion Gap Estim Creat Clear Calc Estimated GFR Random Glucose Lactic Acid Calcium Magnesium Total Bilirubin Direct Bilirubin AST ALT Alkaline Phosphatase Troponin I High Sens B-Natriuretic Peptide 143 H Total Protein Albumin TSH Urine Color STRAW Urine Appearance CLEAR Urine pH 5.5 Ur Specific [place] <= 1.005 Urine Protein NEG Urine Glucose (UA) NEG Urine Ketones NEG Urine Blood NEG Urine Nitrite NEG Ur Leukocyte Esterase NEG COVID-19 ([facility]) Negative COVID-19 Clin Com See Note 01/31/21 02/01/21 02/01/21 16:33 05:39 05:39 MCV 100.0 H MCH 32.1 MCHC 32.1 RDW 14.6 Plt Count 237 MPV 9.8 Immature Gran % (Auto) Neut % (Auto) Lymph % (Auto) [place] % (Auto) Eos % (Auto) Baso % (Auto) Lymph # (Auto) [place] # (Auto) Eos # (Auto) Baso # (Auto) Abs Immat Gran (auto) Absolute Neuts (auto) Absolute Nucleated RBC 0.000 Nucleated RBC % (auto) 0.0 Anion Gap 13 Estim Creat Clear Calc 82.8 Estimated GFR > 60 Random Glucose 160 H D Lactic Acid 0.9 Calcium 9.2 D Magnesium Total Bilirubin Direct Bilirubin AST ALT Alkaline Phosphatase Troponin I High Sens B-Natriuretic Peptide Total Protein Albumin TSH Urine Color Urine Appearance Urine pH Ur Specific [place] Urine Protein Urine Glucose (UA) Urine Ketones Urine Blood Urine Nitrite Ur Leukocyte Esterase COVID-19 ([facility]) COVID-19 Clin Com Assessment and Plan (1) New onset atrial fibrillation: Status: Acute (2) Acute on chronic systolic (congestive) heart failure: Status: Acute Assessment and Plan: This is a 70-year-old male history CHF, CAD to the emergency department 3-4 weeks increasing dyspnea on exertion Acute on chronic heart failure No echocardiogram in the system, h/o low low EF, follow up echo -continue IV Lasix -follow up echocardiogram results -cardiology following -Is&Os, daily weight -low sodium diet New onset atrial fibrillation [id number] score 3 TSH wnl -HR controlled, continue coreg at home dose -will start AC with Eliquis hyperkalemia Resolved hold home potassium supplementation CAD no chest pain -continue statin, asa, Coreg HTN -continue Norvasc, Coreg -hold lisinopril, bp soft will resume as bp allows Morbid obesity BMI 44.1 Body habitus likely worsening respiratory condition tobacco dependence smoking cessation advised -NRT dvt ppx - eliquis code status - DNR/DNI attending: dr. garcia Quality Stroke Does the patient have a stroke diagnosis?: No VTE Prior VTE?: No VTE Risk Level:: Medical - moderate - high VTE Device Contraindication: Treatment Not Indicated VTE Drug Contraindication: N/A - Med Ordered
--- NOTE | 2021-02-01 11:58 | P.CDIC_ITS ---
CDI Concurrent Query Documentation Clarification: PHYSICIAN'S DOCUMENTATION REQUEST Date of Query: 02/01/21 1158 Patient Name: Yuri Rey Admit Date: 01/31/21 Dear Doctor, A review of the medical record indicates additional documentation may be needed. Please review below and update the documentation accordingly. Clinical Indicators: Risk Factors/Clinical Indicators/Treatments ED: Treat empirically for possible COPD exacerbation. PMH COPD Long time smoker, morbidly obese. Dyspnea most consistent with CHF. Please clarify the following: COPD Exacerbation treating, rule out * [Diagnosis] was present on admission and is now resolved * [Diagnosis] was present on admission and is still being monitored, evaluated, or treated * [Diagnosis] was ruled out * [Diagnosis] is still a likely, suspected, probable diagnosis * Other (please specify) * Unable to determine Use of terms such as suspected, likely, concern for, or probable (associated with a specific diagnosis that is being evaluated, monitored, or treated as if it exists) are acceptable and can be coded in the inpatient setting, when documented at the time of discharge. Thank you, Mercedes Leary [facility], CDIS Extension: [phone] Please use your independent medical judgment in providing your response. THIS QUERY IS PART OF THE PERMANENT MEDICAL RECORD Provider Response: Other Other Diagnosis: Patient has no formal diagnosis of COPD. Also, his symptoms have been attributed to CHF and not COPD.
--- NOTE | 2021-02-01 13:59 | CA_ITS ---
Transthoracic Echocardiogram Patient (Last, First, Middle): Yuri Rey G Gender: Male Date of : 1950 Age: 70 Procedure Date: 02/01/2021 Procedure Type: Transthoracic Echocardiogram Location: [facility] – [place] Height: 172.72 cm Weight: 131.09 kg BSA: 2.39 m2 Heart Rate: bpm BP: 112 / 59 mmHg Roll Plugger: Referring MD: Rosie GONGORA Symptoms: New onset AFib, shortness of breath. Study Quality: Fair/Contrast used ECG Rhythm: Atrial Fibrillation Conclusions: - The left ventricular systolic function is moderately decreased. The calculated ejection fraction is 32% by biplane method. - The inferolateral wall and basal inferior segment are akinetic. - There is moderately decreased right ventricular systolic function. - There is mild aortic valve stenosis. - There is moderate mitral annular calcification. There is mild mitral valve regurgitation. Cannot exclude mild mitral stenosis. By history, mitral valve repair. - There is mild tricuspid valve regurgitation. - Mild to moderate pulmonary hypertension is present. - The inferior vena cava is moderately dilated and does not collapse with inspiration. Findings Procedure Information Contrast agent, definity, is being given per protocol without apparent complications. Left Ventricle Mildly increased left ventricular cavity size. There is moderately increased left ventricular wall thickness. The left ventricular systolic function is moderately decreased. The calculated ejection fraction is 32% by biplane method. There is paradoxical septal motion consistent with post-operative status. E/E prime ratio is >15, consistent with elevated filling pressures. Evidence suggests grade I (mild) diastolic dysfunction. Cannot exclude apical wall motion abnormality. Wall Motion Rest Echo Findings The inferolateral wall and basal inferior segment are akinetic. Right Ventricle Moderately increased right ventricular cavity size. There is moderately decreased right ventricular systolic function. Atria The left atrium is severely dilated. The right atrium is mildly dilated. Aortic Valve The aortic valve was not well visualized. There is mild aortic valve stenosis. The peak aortic velocity is 2.06 m/s with a calculated peak gradient of 17 mmHg. The mean gradient is 7 mmHg. The aortic valve area is 1.37 cm2. There is no aortic valve regurgitation. Mitral Valve There is moderate mitral annular calcification. There is mild mitral valve regurgitation. Mean gradient across the mitral valve 5 mm Hg at 67/Min. MVA by PHT 2.5sqcm. Cannot exclude mild mitral stenosis. By history, mitral valve repair. Pulmonic Valve The pulmonic valve was not well visualized. Tricuspid Valve Normal tricuspid valve structure. There is mild tricuspid valve regurgitation. The right ventricular systolic pressure is 49 mmHg. Mild to moderate pulmonary hypertension is present. Great Vessels The asc aorta is normal in size. Small plaque is seen in the sinuses of Valsalva. Venous The inferior vena cava is moderately dilated and does not collapse with inspiration. Pericardium/Pleural There is no evidence of pericardial effusion. Prior Study Comparison No prior study available for comparison. Measurements 2D Linear Measurements IVSd: 1.33 0.6-0.9/0.6-1.0 cm LVIDd: 5.82 3.9-5.3/4.2-5.9 cm LVIDd Index: 2.44 2.4-3.2/2.2-3.1 cm/m2 LVIDs: 5.22 2.0-3.6 cm LVPWd: 1.28 0.7-1.1 cm Ao Root: 3.30 2.1-3.5 cm LA Diam: 5.50 2.7-3.8/3.0-4.0 cm LAIDs Index: 2.30 1.5-2.3 cm/m2 LV Mass: 418.02 67-162/88-224 g LV Mass Index: 174.90 43-95/49-115 g/m2 LVOT Diam: 2.00 3.0+(-)1.3 cm 2D Systolic Function EF 4C: 42.00 >55% EF 2C: 20.70 >55% EF BiP: 32.30 >55% Mitral Valve MV VTI: 0.48 MV Pk [place]: 1.91 MV Mn Dor[place]o: 0.96 MV Pk Grad: 15.00 MV Mn Grad: 6.00 MV Pk E: 1.39 MV Decel Time: 302.00 E'Lateral: 6.85 E'Medial: 6.42 E/E' Med: 21.70 E/E' Lat: 20.30 PHT: 88.00 MVA PHT: 2.50 MVA Continuity: 1.27 Decel [place]: 4.60 Aortic Valve AoV Pk [place]: 2.06 AoV Mn [place]: 1.20 AoV VTI: 0.45 AoV Pk Grad: 17.00 Aov Mn Grad: 7.00 VALERIY Cont.VTI: 1.37 LVOT LVOT Pk [place]: 0.88 LVOT Mn [place]: 0.60 LVOT VTI: 0.20 LVOT Pk Grad: 3.00 LVOT Mn Grad: 2.00 LVOT Diam: 2.00 LVOT Area: 3.14 Diastolic Function MV Pk E: 1.39 E'Medial: 6.42 E/E' Med: 21.70 E' Laterial: 6.85 E/E' Lat: 20.30 Right Ventricle TVS' Dor[place]o: 6.00 Tricuspid Valve TR Pk Dor[place]: 2.01 TR Pk Grad: 16.00 RVSP: 49.00 Great Vessels Aorta Ao Root-2D: 3.30 2.0-3.7 cm Ao Asc: 3.50 2.1-3.4 cm Pulmonary Valve PV Pk Dor[place]o: 1.19 Peak PV Grad: 6.00 Updated in Other Vendor System with Status of Final Marvin Molina MD electronically signed on 02/01/2021 4:09:44 PM with status of Final
[2021-02-01] MEDS: Pravastatin Sodium 80 MG TABLET PO (20:57)
[2021-02-02 04:00] VITALS: BP 118/70; PULSE 78; RESP 20; TEMP 36.2; O2SAT 93
[2021-02-02 07:02] VITALS: BP 118/70; PULSE 80; RESP 20; TEMP 36.1; O2SAT 95
[2021-02-02 07:21] LABS: Anion Gap 13 (12-20); Blood Urea Nitrogen 24 mg/dL (9-16); Calcium 9.5 mg/dL (8.4-10.2); Carbon Dioxide 30 mmol/L (22-29); Chloride 100 mmol/L (96-108); Creatinine Clr Calc Pharmacy 82.1; Estimated Glomerular Filt Rate > 60; Glucose Random 104 mg/dL (60-115); Potassium 4.2 mmol/L (3.3-5.1); Sodium 139 mmol/L (135-145)
--- NOTE | 2021-02-02 08:33 | HO.PM.IMPN ---
Subjective Subjective Date of Service: 02/02/21 Interval History: Seen and examined this morning Follow-up for CHF No overnight events Breathing continues to improve as well as lower extremity edema Review of Systems Review of Systems: Yes all other systems are reviewed and are negative Constitutional Constitutional: Denies chills and Denies fever(s) Cardiovascular Cardiovascular: Denies chest pain Respiratory Respiratory: Denies cough Gastrointestinal Gastrointestinal: Denies abdominal pain Physical Exam Vital Signs: Vital Signs: Last Vital Signs Temp 97 F 02/02/21 07:02 Pulse 80 02/02/21 07:02 Resp 20 02/02/21 07:02 BP 118/70 02/02/21 07:02 Pulse Ox 95 02/02/21 07:02 Oxygen Flow Rate 2 01/31/21 10:42 Body Mass Index 44.1 Const: General: cooperative, no acute distress, alert and awake Nutritional Appearance: obese Orientation/consciousness: patient oriented x3 HENMT: Head: Yes normocephalic and Yes atraumatic Eyes: Sclerae: sclerae normal Pupils: Equal, round and reactive pupils present Chest: Chest palpation & inspection: normal inspection of the chest Resp: Auscultation: clear to auscultation bilaterally Cardio: Rate: regular rate Rhythm: abnormal rhythm irregularly irregular Heart sounds: Murmur heart sound present GI: Inspection: No distended Palpation (GI): Soft to palpation and nontender Skin: Other: dry skin around left anabaptism region (reportedly present on and off for up to a year) left ear trangus with ulcerated lesion (present for close to a year) Neuro: General: patient oriented x3 Cranial nerves: Yes CN's II-XII intact bilaterally, Yes Equal, round and reactive pupils present and Yes Bilaterally intact EOM present Extrem: Other: b/l lower extremity edema, improving Objective Data Active Medications Acetaminophen (Acetaminophen 325 Mg Tablet) 650 mg PO Q6H PRN PRN Reason: Pain, Mild (Pain Scale 1-3) Amlodipine Besylate (Amlodipine Besylate 10 Mg Tablet) 10 mg PO DAILY [facility]; Protocol Last Admin: 02/01/21 10:36 Dose: 10 mg Documented by: LAM Apixaban (Apixaban 5 Mg Tablet) 5 mg PO BID [facility] Last Admin: 02/01/21 20:58 Dose: 5 mg Documented by: JAGUAR Aspirin (Aspirin Enteric Coated 81 Mg Tablet.) 81 mg PO DAILY [facility] Last Admin: 02/01/21 10:35 Dose: 81 mg Documented by: LAM Carvedilol (Carvedilol 25 Mg Tablet) 25 mg PO BID [facility]; Protocol Last Admin: 02/01/21 20:57 Dose: 25 mg Documented by: JAGUAR Docusate Sodium (Docusate Sodium 100 Mg Capsule) 100 mg PO DAILY PRN PRN Reason: Constipation Furosemide (Furosemide 40 Mg/4 Ml Vial) 40 mg IVPUSH BID@0900,1800 [facility]; Protocol Last Admin: 02/01/21 17:47 Dose: 40 mg Documented by: LAM Lisinopril (Lisinopril 10 Mg Tablet) 10 mg PO DAILY [facility]; Protocol Nicotine (Nicotine 14 Mg Patch.Td24) 14 mg TRANSDERMA DAILY [facility] Last Admin: 02/01/21 10:40 Dose: Not Given Documented by: LAM Non-Admin Reason: Patient Refused Ondansetron HCl (Ondansetron Hcl 4 Mg/2 Ml Vial) 4 mg IVPUSH Q8H PRN PRN Reason: Nausea and Vomiting Pharmacy Consult (Consult Rx Perform Med Rec) 1 each MISCELLANE ONCE PRN PRN Reason: Consult order Pravastatin Sodium (Pravastatin Sodium 80 Mg Tablet) 80 mg PO BEDTIME [facility] Last Admin: 02/01/21 20:57 Dose: 80 mg Documented by: JAGUAR Sodium Chloride (0.9 % Sodium Chloride Flush 3 Ml Syringe) 3 ml IVFLUSH QSHIFT [facility] Last Admin: 02/01/21 21:00 Dose: 3 ml Documented by: JAGUAR Labs CBC & Chem 7: 02/01/21 05:39 02/02/21 06:34 Labs: Laboratory Results - last 24 hr 02/02/21 06:34 Anion Gap 13 Estim Creat Clear Calc 82.1 Estimated GFR > 60 Random Glucose 104 Calcium 9.5 Microbiology Microbiology Results: Microbiology 01/31/21 16:13 Blood Culture - Preliminary Blood - Venous No growth after 24 hours. 01/31/21 15:46 Blood Culture - Preliminary Blood - Venous No growth after 24 hours. Assessment and Plan (1) New onset atrial fibrillation: Status: Acute (2) Acute on chronic systolic (congestive) heart failure: Status: Acute Assessment and Plan: This is a 70-year-old male history CHF, CAD to the emergency department 3-4 weeks increasing dyspnea on exertion Acute on chronic HFrEF -2600 thus far ECHO: LVEF around 30%, inferolateral wall, basal inferior segment are akinetic; mild-mod pulm HTN -continue IV Lasix -cardiology following -Is&Os, daily weight, low sodium diet -continue BB, resume lisinopril New onset atrial fibrillation HR controlled. [id number] score 3 TSH wnl -continue coreg -started on Eliquis hyperkalemia Resolved hold home potassium supplementation CAD no chest pain -continue statin, asa, Coreg HTN -continue Norvasc, Coreg -resume lower dose of lisinopril Morbid obesity BMI 44.1 Body habitus likely worsening respiratory condition tobacco dependence smoking cessation advised -NRT dvt ppx - eliquis code status - DNR/DNI attending: dr. quispe Quality Stroke Does the patient have a stroke diagnosis?: No VTE Prior VTE?: No VTE Risk Level:: Medical - moderate - high VTE Device Contraindication: Treatment Not Indicated VTE Drug Contraindication: N/A - Med Ordered
--- NOTE | 2021-02-02 10:08 | P.PNCA_ITS ---
Subjective Subjective Date of Service: 02/02/21 Interval history: He states that he feels well. No specific complaints. He states that his leg swelling is better. Review of Systems Review of Systems Yes all other systems are reviewed and are negative Cardiovascular: Reports as per HPI, Reports no additional cardiovascular complaints, Denies acrocyanosis, Denies cool extremities, Denies painful finge rtips, Denies chest pain, Denies chest pain at rest, Denies diaphoresis, Denies syncope, Denies irregular heart rhythm, Denies claudication, Reports leg edema, Denies lightheadedness, Denies palpitations and Reports dyspnea Respiratory: Reports dyspnea Denies syncope Endocrine: Denies palpitations Physical Exam Vital Signs: Last Vital Signs Temp 97 F 02/02/21 07:02 Pulse 80 02/02/21 07:02 Resp 20 02/02/21 07:02 BP 118/70 02/02/21 07:02 Pulse Ox 95 02/02/21 07:02 Oxygen Flow Rate 2 01/31/21 10:42 Body Mass Index 44.1 Const General: cooperative and no acute distress [facility] Other: Unremarkable Neck Neck: Yes normal visual inspection Chest Chest palpation & inspection: normal inspection of the chest Resp Auscultation: clear to auscultation bilaterally Cardio Jugular venous distension: no JVD Palpation: normal PMI Heart sounds: S1 normal heart sound present, S2 normal heart sound present, no gallops, Murmur heart sound present (2/6 [place] aortic area) and no rubs GI Palpation (GI): Soft to palpation Back/Spine/Pelvis Other: unremarkable Skin General skin exam: no rashes or lesions noted Neuro Cranial nerves: Yes Other cranial nerve findings present Extrem General: Yes pedal edema (2+ edema) Psych Mental Status: other Results Labs and Meds Result diagrams: 02/01/21 05:39 02/02/21 06:34 Lab results: Laboratory Results - last 24 hr 02/02/21 06:34 Sodium 139 Potassium 4.2 Chloride 100 Carbon Dioxide 30 H Anion Gap 13 BUN 24 H Creatinine 1.14 Estim Creat Clear Calc 82.1 Estimated GFR > 60 Random Glucose 104 Calcium 9.5 Progress Note: A&P Assessment and plan (1) Acute on chronic systolic (congestive) heart failure: Status: Acute (2) Status post mitral valve annuloplasty: Status: Acute (3) Status post coronary artery bypass graft: Status: Acute (4) New onset atrial fibrillation: Status: Acute Assessment and Plan: Based on my last office note, his ejection fraction of 30-35% from several years ago but not been rechecked because of financial issues. Repeat echocardiogram performed in the hospital shows LVEF in the similar range and wall motion abnormalities from known coronary disease. Ideally, would like to continue IV diuretics for another day or so but he states he would like to rather go home. Hence we will increase his home diuretic regimen. Otherwise, atrial fibrillation is a new finding but rate is well controlled. Anticoagulation recommended based on thromboembolic risk. He is willing to consider outpatient follow-up, but previously declined stating financial issues. If able to come, we can see. Fall Risk Details Current Medications: Current Medications Acetaminophen (Acetaminophen 325 Mg Tablet) 650 mg PO Q6H PRN PRN Reason: Pain, Mild (Pain Scale 1-3) Amlodipine Besylate (Amlodipine Besylate 10 Mg Tablet) 10 mg PO DAILY [facility]; Protocol Last Admin: 02/01/21 10:36 Dose: 10 mg Documented by: Apixaban (Apixaban 5 Mg Tablet) 5 mg PO BID [facility] Last Admin: 02/01/21 20:58 Dose: 5 mg Documented by: Aspirin (Aspirin Enteric Coated 81 Mg Tablet.) 81 mg PO DAILY [facility] Last Admin: 02/01/21 10:35 Dose: 81 mg Documented by: Carvedilol (Carvedilol 25 Mg Tablet) 25 mg PO BID [facility]; Protocol Last Admin: 02/01/21 20:57 Dose: 25 mg Documented by: Docusate Sodium (Docusate Sodium 100 Mg Capsule) 100 mg PO DAILY PRN PRN Reason: Constipation Furosemide (Furosemide 40 Mg/4 Ml Vial) 40 mg IVPUSH BID@0900,1800 [facility]; Protocol Last Admin: 02/01/21 17:47 Dose: 40 mg Documented by: Lisinopril (Lisinopril 10 Mg Tablet) 10 mg PO DAILY [facility]; Protocol Nicotine (Nicotine 14 Mg Patch.Td24) 14 mg TRANSDERMA DAILY [facility] Last Admin: 02/01/21 10:40 Dose: Not Given Documented by: Ondansetron HCl (Ondansetron Hcl 4 Mg/2 Ml Vial) 4 mg IVPUSH Q8H PRN PRN Reason: Nausea and Vomiting Pharmacy Consult (Consult Rx Perform Med Rec) 1 each MISCELLANE ONCE PRN PRN Reason: Consult order Pravastatin Sodium (Pravastatin Sodium 80 Mg Tablet) 80 mg PO BEDTIME [facility] Last Admin: 02/01/21 20:57 Dose: 80 mg Documented by: Sodium Chloride (0.9 % Sodium Chloride Flush 3 Ml Syringe) 3 ml IVFLUSH QSHIFT [facility] Last Admin: 02/01/21 21:00 Dose: 3 ml Documented by: Time Spent With Patient Time: Total time spent is greater than 50% in coordination of care (as documented) at patient's floor/unit and/or counseling patient: Time with patient: less than 15 minutes Progress Note: Quality Stroke Does the patient have a stroke diagnosis?: No Procedures Date of Service Date of Service: 02/02/21
[2021-02-02 10:25] VITALS: O2SAT 92
[2021-02-02 10:50] VITALS: BP 132/74; PULSE 90; RESP 20; TEMP 36.6; O2SAT 93
[2021-02-02] MEDS: 0.9 % Sodium Chloride Flush 3 ML SYRINGE IVFLUSH (11:10)
[2021-02-02] MEDS: Furosemide 40 MG/4 ML VIAL IVPUSH (11:10)
[2021-02-02] MEDS: amLODIPine Besylate 10 MG TABLET PO (11:11)
[2021-02-02] MEDS: lisinopriL 10 MG TABLET PO (11:11)
[2021-02-02] MEDS: Apixaban 5 MG TABLET PO (11:11)
[2021-02-02] MEDS: Aspirin Enteric Coated 81 MG TABLET.DR PO (11:11)
[2021-02-02] MEDS: carvediloL 25 MG TABLET PO (11:12)
--- NOTE | 2021-02-02 13:32 | P.DS_ITS ---
DS: Providers Provider Date of Service: 02/02/21 Date of admission: 01/31/21 15:29 Date of discharge: 02/02/21 Primary care physician: Unknown Physician Consults: 01/31/21 15:29 Consult to Cardiology Routine Consulting Provider: Marvin Molina Reason for consultation: chf, afib Has provider been notified: No Attending physician on discharge: [facility] Discharging clinician: Nilda Palafox DS: Diagnosis Discharge Diagnosis (1) Acute on chronic systolic (congestive) heart failure: Status: Acute (2) Status post mitral valve annuloplasty: Status: Acute (3) Status post coronary artery bypass graft: Status: Acute (4) New onset atrial fibrillation: Status: Acute DS: Summary Hospital Course Hospital Course: From H&P on day of admission This is a 70-year-old male with history of CHF, hypertension, daily tobacco use who presents to the emergency department with shortness of breath.? Patient reports 3-4 weeks of progressively worsening dyspnea on exertion.? Today he became short of breath just walking short distance.? This prompted him to come to the emergency department for evaluation.? He has had some intermittent cough productive of clear phlegm.? He denies any associated fever or chills.? He does report 20 lb weight gain over the past 3-4 weeks.? He denies any associated cough, palpitations, dizziness.? He has been taking his home dose of Lasix and has not missed any doses.? He reports following a low-sodium diet in general but been has been eating deli meat recently.? In the emergency department chest x-ray showed patchy opacities. His BNP was 143, troponin 7.6 and potassium 5.4. He was treated with IV Solu- Medrol, ceftriaxone and azithromycin and IV Lasix. He has had over 1L of urine ouput since receiving lasix and reports a small improvement in his breathing.? The decision was made to admit him for further management with a working diagnosis of acute chf exacerbation. This is a 70-year-old male history CHF, CAD to the emergency department 3-4 weeks increasing dyspnea on exertion admitted for acute exacerbation of CHF. Dyspnea. Symptoms are most consistent with CHF. Although chest x-ray on day of admission showed possibility of pneumonia patient had no white count, no fever, no significant cough to suggest infection. He was admitted to the telemetry unit for close monitoring. He was started on IV lasix with good effect. He had echocardiagram showing LVEF around 30%, inferolateral wall, basal inferior segment are akinetic; mild-mod pulm HTN. He was seen in consultation by cardiology who agreed with diuresis. His leg edema and respiratory status improved and he was able to be weaned off of oxygen. Today it was recommended to continue IV diuresis for another day or two however, the patient requested to be discharged home. His dose of lasix will be increased from 40 mg daily to 40 mg bid. He was instructed to have repeat labs in the middle of next week, follow- up with his PCP and schedule ongoing follow-up with field care coordinator. His dose of lisinopril was decreased from 20 mg daily to 10 mg daily. He was continued on his home dose of Coreg. CHF education was discussed and the patient understands to minimize salt intake and monitor weight daily. He was also noted to have New onset atrial fibrillation. His heart rate was well controlled on his home dose of Coreg. Due to elevated [id number] score he was started on anticoagulation with Eliquis. Tobacco dependence. The importance of smoking cessation was discussed. Patient will be discharged home with nicotine replacement therapy. Time Spent with Patient Time attestation: Total time spent providing and/or coordinating discharge services: Discharge coordination time: Greater than 30 minutes Quality: Stroke Does the patient have a stroke diagnosis?: No Physical Exam Vital Signs: Vital Signs: Last Vital Signs Temp 98 F 02/02/21 10:50 Pulse 90 02/02/21 10:50 Resp 20 02/02/21 10:50 BP 132/74 02/02/21 10:50 Pulse Ox 93 02/02/21 10:50 Oxygen Flow Rate 2 01/31/21 10:42 Body Mass Index 44.1 Const: General: cooperative, no acute distress, alert and awake Nutritional Appearance: obese Orientation/consciousness: patient oriented x3 HENMT: Head: Yes normocephalic and Yes atraumatic Eyes: Sclerae: sclerae normal Pupils: Equal, round and reactive pupils present Chest: Chest palpation & inspection: normal inspection of the chest Resp: Other: mild bibasilar crackles r>L; no wheezing; diminished breath sounds b/l Auscultation: clear to auscultation bilaterally Cardio: Rate: regular rate Rhythm: abnormal rhythm irregularly irregular Heart sounds: Murmur heart sound present GI: Inspection: No distended Palpation (GI): Soft to palpation and nontender Skin: Other: dry skin around left yazidi region (reportedly present on and off for up to a year) left ear trangus with ulcerated lesion (present for close to a year) Neuro: General: patient oriented x3 Cranial nerves: Yes CN's II-XII intact bilaterally, Yes Equal, round and reactive pupils present and Yes Bilaterally intact EOM present Extrem: Other: b/l lower extremity edema, improving DS: Data Data Completed and Pending Labs on day of discharge: Laboratory Results - last 24 hr 02/02/21 06:34 Sodium 139 Potassium 4.2 Chloride 100 Carbon Dioxide 30 H Anion Gap 13 BUN 24 H Creatinine 1.14 Estim Creat Clear Calc 82.1 Estimated GFR > 60 Random Glucose 104 Calcium 9.5 Preliminary micro results at discharge 01/31/21 16:13 Blood Culture - Preliminary Blood - Venous No growth after 24 hours. 01/31/21 15:46 Blood Culture - Preliminary Blood - Venous No growth after 24 hours. Discharge Plan Discharge Patient Disposition: Home, Self-Care Discharge Diagnosis: new onset atrial fibrillation acute on chronic HFrEF Referrals: Marvin Molina MD [Physician] - 1 Week Physician,Kylie J [Primary Care Provider] - 1 Week Discharge Medications: New nicotine 14 mg/24 hr Patch 24 Hour 14 mg transdermal DAILY Qty: 28 RF: 0 Eliquis 5 mg Tablet 5 mg PO BID 30 Days Qty: 60 RF: 0 lisinopril 10 mg Tablet 10 mg PO DAILY 30 Days Qty: 30 RF: 0 furosemide 40 mg tablet 40 mg PO BID 30 Days Qty: 60 RF: 0 Continued amlodipine 10 mg tablet 10 mg PO DAILY RF: 0 pravastatin 80 mg tablet 80 mg PO DAILY RF: 0 carvedilol 25 mg tablet 25 mg PO BID RF: 0 aspirin [Adult Low Dose Aspirin] 81 mg tablet,delayed release (DR/EC) 81 mg PO DAILY RF: 0 Discontinued lisinopril 20 mg tablet 20 mg PO DAILY RF: 0 potassium chloride 10 mEq capsule, extended release 10 meq PO BID RF: 0 furosemide 40 mg tablet 40 mg PO DAILY RF: 0 Discharge Orders: Discharge Order (Routine); Ordered 02/02/21 Ordered By: Nilda Palafox Diet: low salt diet Activity on Discharge: As tolerated Stand Alone Forms: Patient Portal Discharge page Other Ambulatory Orders: Basic Metabolic Panel (Routine) Timeframe: [id number] Facility: [facility] - Location: Laboratory Ordered By: Nilda Palafox Care Plan Goals: Stay healthy and out of the hospital Health Concerns: New onset atrial fibrillation Acute on Chronic Heart Failure Plan of Treatment: You have been started on a new medication for your atrial fibrillation. Eliquis is a blood thinner. You should take this medication as prescribed to help reduce the risk of stroke. Your dose of lasix has been increased to 40 mg twice daily Your dose of lisinopril has been decreased to 10 mg daily Follow a low salt diet and weigh yourself daily. If you gain more than 2 pounds in a day call your PCP. Call to schedule follow up with cardiology Call to schedule follow up with PCP Assessment: See discharge summary Patient Instructions: Low-Sodium Diet (DC) Discharge Date/Time: 02/02/21 15:15
--- NOTE | 2021-02-02 13:44 | MHC.CM.PN ---
PT TO DC HOME TODAY WITH NO SERVICES
== END 2021-02-02 15:15 | disposition home or self-care (01) | DRG 194 ==
LOC: HO.ED 14:30 → HO.EDOVER 15:42 → HO.IMC 17:47
PROVIDERS: Physician Assistant; Admitting Provider Physician Assistant Medical; Emergency Provider Emergency Medicine Emergency Medical Services; Visit Provider Physician Assistant Medical
DX: I11.0 Hypertensive heart disease with heart failure (principal); I48.91 Unspecified atrial fibrillation; Z68.41 Body mass index [BMI] 40.0-44.9, adult; Z95.1 Presence of aortocoronary bypass graft; Z79.01 Long term (current) use of anticoagulants; I50.23 Acute on chronic systolic (congestive) heart failure; E66.01 Morbid (severe) obesity due to excess calories; Z20.822 Contact with and (suspected) exposure to COVID-19; E87.5 Hyperkalemia; F17.210 Nicotine dependence, cigarettes, uncomplicated; Z71.6 Tobacco abuse counseling; Z79.82 Long term (current) use of aspirin; Z79.899 Other long term (current) drug therapy; Z66 Do not resuscitate
CPT/HCPCS: 36415; 71045; 80048; 80076; 81003; 83605; 83735; 83880; 84443; 84484; 85025; 85027; 87040; 87635; 93005; 93306; 94640; 96365; 96367; 96375; 99285; 99291; J0456; J0696; J1940; J2920